=== PATIENT | male | born 1995 | race Caucasian/White ===

== ENCOUNTER 2018-03-14 21:07 | Emergency (ER) | payer OTHER ==
[2018-03-15] MEDS: IBUPROFEN 600 MG TAB PO (00:22)
== END 2018-03-15 07:09 | disposition home or self-care (01) ==
LOC: FTE 21:07
DX: M25.511 Pain in right shoulder (principal); F17.210 Nicotine dependence, cigarettes, uncomplicated
CPT/HCPCS: 73030; 73030-RT; 99283-25

== ENCOUNTER 2018-07-23 15:45 | Emergency (ER) | payer OTHER | END 2018-07-23 16:58 | disposition home or self-care (01) | LOC: FTE 15:45 | DX: T63.301A Toxic effect of unspecified spider venom, accidental (unintentional), initial encounter (principal); F17.210 Nicotine dependence, cigarettes, uncomplicated | CPT/HCPCS: 99283 ==

== ENCOUNTER 2018-09-06 06:29 | Emergency (ER) | payer OTHER ==
[2018-09-06] MEDS: IBUPROFEN 600 MG TAB PO (07:16)
== END 2018-09-06 07:44 | disposition home or self-care (01) ==
LOC: FTE 06:29
DX: R51 Headache (principal)
CPT/HCPCS: 99282; Z7502

== ENCOUNTER 2018-11-06 09:22 | Emergency (ER) | payer OTHER ==
[2018-11-06] MEDS: SOD CHLORIDE 0.9% 1,000 ML IV (10:26)
[2018-11-06] MEDS: morphine 4 MG/ML VIAL IV (10:26)
[2018-11-06] MEDS: ONDANSETRON 4 MG INJ IV (10:26)
[2018-11-06 10:33] LABS: ADD MAN DIFF? NO
[2018-11-06 10:36] LABS: BASOPHILS % 0.4 % (0.0-2.0); EOSINOPHILS # 0.2 10^3/ul (0.0-0.5); EOSINOPHILS % 2.5 % (0.0-7.0); HEMATOCRIT 47.8 % (42.0-52.0); HEMOGLOBIN 16.4 g/dl (14.0-18.0); LYMPHOCYTES # 1.9 10^3/ul (0.8-2.9); LYMPHOCYTES % 23.4 % (15.0-51.0); MEAN CORPUSCULAR HEMOGLOBIN 29.2 pg (29.0-33.0); MEAN CORPUSCULAR HGB CONC 34.3 g/dl (32.0-37.0); MEAN CORPUSCULAR VOLUME 85.1 fl (82.0-101.0); MEAN PLATELET VOLUME 10.1 fl (7.4-10.4); MONOCYTE # 0.7 10^3/ul (0.3-0.9); MONOCYTES % 8.9 % (0.0-11.0); NEUTROPHILS % 62.7 % (39.0-77.0); PLATELET COUNT 246 10^3/UL (140-415); RED BLOOD COUNT 5.62 10^6/ul (4.70-6.10)
[2018-11-06 10:38] LABS: ADD UMIC YES; UR ASCORBIC ACID NEGATIVE (NEGATIVE); UR BILIRUBIN (Dip) NEGATIVE (NEGATIVE); UR BLOOD (Dip) 1+ mg/dL (NEGATIVE); UR CLARITY CLEAR (CLEAR); UR COLOR YELLOW (YELLOW); UR GLUCOSE (Dip) NEGATIVE (NEGATIVE); UR KETONES (Dip) NEGATIVE (NEGATIVE); UR LEUKOCYTE ESTERASE (Dip) NEGATIVE Leu/ul (NEGATIVE); UR NITRITE (Dip) NEGATIVE (NEGATIVE); UR RBC 0 /HPF (0-5); UR SPECIFIC GRAVITY (Dip) 1.011 (1.003-1.030); UR TOTAL PROTEIN (Dip) NEGATIVE (NEGATIVE); UR UROBILINOGEN (Dip) NEGATIVE (NEGATIVE); UR WBC 0 /HPF (0-5)
[2018-11-06 10:53] LABS: ALANINE AMINOTRANSFERASE 112 IU/L (13-69); ALBUMIN 4.9 g/dl (3.3-4.9); ALBUMIN/GLOBULIN RATIO 1.44; ALKALINE PHOSPHATASE 135 IU/L (42-121); ANION GAP 11 (5-13); ASPARTATE AMINO TRANSFERASE 60 IU/L (15-46); BILIRUBIN,INDIRECT 0.7 mg/dl (0-1.1); BILIRUBIN,TOTAL 0.7 mg/dl (0.2-1.3); BLOOD UREA NITROGEN 10 mg/dl (7-20); CALCIUM 10.3 mg/dl (8.4-10.2); CARBON DIOXIDE 27 mmol/L (21-31); CHLORIDE 103 mmol/L (97-110); CREATININE 0.78 mg/dl (0.61-1.24); Estimated GFR > 60 mL/min (>60); GLUCOSE 97 mg/dl (70-220); LIPASE 77 U/L (23-300); POTASSIUM 4.8 mmol/L (3.5-5.1); SODIUM 141 mmol/L (135-144); TOTAL PROTEIN 8.3 g/dl (6.1-8.1)
== END 2018-11-06 12:23 | disposition home or self-care (01) ==
LOC: FTE 09:22
DX: R10.9 Unspecified abdominal pain (principal)
CPT/HCPCS: 36415; 74176; 76705; 80053; 81001; 83690; 85025; 96361; 96374; 96375; 99285-25

== ENCOUNTER 2019-01-08 08:20 | Emergency (ER) | payer OTHER ==
[2019-01-08] MEDS: LIDOCAINE 1% (MDV) 20 ML INJ SC (10:42)
[2019-01-08] MEDS: IBUPROFEN 800 MG TAB PO (10:46)
== END 2019-01-08 12:16 | disposition home or self-care (01) ==
LOC: FTE 08:20
DX: S01.111A Laceration without foreign body of right eyelid and periocular area, initial encounter (principal); W50.1XXA Accidental kick by another person, initial encounter; Y92.9 Unspecified place or not applicable
CPT/HCPCS: 12011; 70480; 99284-25

== ENCOUNTER 2019-01-13 15:47 | Emergency (ER) | payer OTHER | END 2019-01-13 17:31 | disposition home or self-care (01) | LOC: E/R 15:47 | DX: Z48.02 Encounter for removal of sutures (principal) | CPT/HCPCS: 99281; Z7502 ==

== ENCOUNTER 2019-02-27 10:11 | Emergency (ER) | payer OTHER | END 2019-02-27 12:13 | disposition home or self-care (01) | LOC: FTE 10:11 | DX: T24.031A Burn of unspecified degree of right lower leg, initial encounter (principal); X19.XXXA Contact with other heat and hot substances, initial encounter; Y92.9 Unspecified place or not applicable | CPT/HCPCS: 99283; Z7502 ==

== ENCOUNTER 2019-04-14 11:35 | Emergency (ER) | payer OTHER ==
[2019-04-14] MEDS: IBUPROFEN 600 MG TAB PO (12:25)
[2019-04-14 13:04] LABS: ADD MAN DIFF? NO
[2019-04-14 13:06] LABS: BASOPHILS % 0.4 % (0.0-2.0); EOSINOPHILS # 0.1 10^3/ul (0.0-0.5); EOSINOPHILS % 0.7 % (0.0-7.0); HEMATOCRIT 43.5 % (42.0-52.0); HEMOGLOBIN 15.2 g/dl (14.0-18.0); LYMPHOCYTES # 1.4 10^3/ul (0.8-2.9); MEAN CORPUSCULAR HGB CONC 34.9 g/dl (32.0-37.0); MEAN PLATELET VOLUME 10.2 fl (7.4-10.4); MONOCYTE # 0.6 10^3/ul (0.3-0.9); MONOCYTES % 6.2 % (0.0-11.0); NEUTROPHIL # 7.4 10^3/ul (1.6-7.5); NEUTROPHILS % 77.6 % (39.0-77.0); PLATELET COUNT 246 10^3/UL (140-415); RED BLOOD COUNT 5.24 10^6/ul (4.70-6.10); RED CELL DISTRIBUTION WIDTH 12.1 % (11.5-14.5)
[2019-04-14 13:06] LABS: WHITE BLOOD COUNT 9.6 10^3/ul (4.8-10.8)
[2019-04-14 13:32] LABS: ANION GAP 10 (5-13); BLOOD UREA NITROGEN 11 mg/dl (7-20); CALCIUM 9.4 mg/dl (8.4-10.2); CARBON DIOXIDE 23 mmol/L (21-31); CHLORIDE 107 mmol/L (97-110); CREATININE 0.71 mg/dl (0.61-1.24); Estimated GFR > 60 mL/min (>60); GLUCOSE 95 mg/dl (70-220); POTASSIUM 4.2 mmol/L (3.5-5.1); SODIUM 140 mmol/L (135-144)
== END 2019-04-14 13:45 | disposition home or self-care (01) ==
LOC: FTE 11:35
DX: R51 Headache (principal)
CPT/HCPCS: 70450; 80048; 85025; 99284-25

== ENCOUNTER 2019-06-02 17:47 | Emergency (ER) | payer SELFPAY, OTHER ==
[2019-06-02] MEDS: FLUORESCEIN STRIP RIGHT EYE (19:57)
[2019-06-02] MEDS: TETRACAINE 0.5% 4 ML OPH RIGHT EYE (19:57)
== END 2019-06-02 20:01 | disposition home or self-care (01) ==
LOC: FTE 17:47
DX: S05.01XA Injury of conjunctiva and corneal abrasion without foreign body, right eye, initial encounter (principal); X58.XXXA Exposure to other specified factors, initial encounter; Y92.9 Unspecified place or not applicable
CPT/HCPCS: 99283